=== PATIENT | female | born 1980 | race Caucasian/White ===

== ENCOUNTER 2018-09-10 14:11 | Emergency (ER) | payer OTHER ==
--- NOTE | 2018-09-10 14:21 | PDOC ---
Rapid Medical Evaluation Chief Complaint: Pain Time Seen by Provider: 09/10/18 14:17 Medical Evaluation: Allergies Allergy/AdvReac Type Severity Reaction Status Date / Time No Known Allergies Allergy Verified 09/10/18 14:18 09/10/18 14:18 I have performed a brief in-person evaluation of this patient. The patient presents with a chief complaint of: left abd pain, Nausea/ fevers Pertinent physical exam findings: + CVAt worse on the left I have ordered the following: UA/ Cx/ UcG The patient will proceed to the ED for further evaluation. Discharge Disposition - Diagnosis Abdominal pain Qualifiers: Abdominal location: lower abdomen, unspecified Qualified Code(s): R10.30 - Lower abdominal pain, unspecified - Referrals - Patient Instructions - Post Discharge Activity
[2018-09-10 14:22] VITALS: BP 114/69; PULSE 92; TEMP 100.1; BMI 30.2
[2018-09-10 15:23] LABS: EPI CELLS 0.6 /HPF (0-5/HPF); PH,URINE 6.5 (5.0-8.0); URINE APPEARANCE CLEAR; URINE BACTERIA 5356.2 /hpf (NEGATIVE); URINE BILIRUBIN NEGATIVE (NEGATIVE); URINE CASTS 8 /lpf (0-8); URINE COLOR YELLOW; URINE GLUCOSE (UA) NEGATIVE (NEGATIVE); URINE KETONE TRACE (NEGATIVE); URINE LEUK ESTERASE 2+ (NEGATIVE); URINE NITRITE POSITIVE (NEGATIVE); URINE PROTEIN NEGATIVE (NEGATIVE); URINE RBC 6 /hpf (0-4); URINE UROBILINOGEN 0.2 mg/dL (0.2-1.0); URINE WBC 34 /hpf (0-5)
[2018-09-10 15:29] LABS: HCG,QUALITATIVE URINE Negative
--- NOTE | 2018-09-10 15:57 | PDOC ---
History of Present Illness - General Chief Complaint: Pain Stated Complaint: PAIN Time Seen by Provider: 09/10/18 14:17 History Source: Patient Exam Limitations: Language Barrier - History of Present Illness Initial Comments: 09/10/18 15:48 38 yo F with no significant pmhx presents with fever and abdominal pain. She describes constant 8/10 left sided abdominal pain that has been getting worse over time. She endorses fevers at home. Denies dysuria or hematuria. Denies CP, JUDGE, SOB, nausea or vomiting. Timing/Duration: getting worse Severity: moderate Past History - Past Medical History Allergies/Adverse Reactions: Allergies Allergy/AdvReac Type Severity Reaction Status Date / Time No Known Allergies Allergy Verified 09/10/18 14:18 Home Medications: Ambulatory Orders Doxycycline Monohydrate [Monodox] 100 mg PO Q12H #28 capsule 11/26/15 NK [No Known Home Medication] 11/26/15 Cardiac Disorders: Yes (PALPITATIONS) COPD: No - Immunization History Immunization Up to Date: Yes - Suicide/Smoking/Psychosocial Hx Smoking History: Never smoked Hx Alcohol Use: No Drug/Substance Use Hx: No Substance Use Type: None Review of Systems - Review of Systems Constitutional: Yes: Chills, Diaphoresis, Fever, Loss of Appetite HEENTM: No: Recent change in vision Respiratory: No: Cough, Orthopnea, Shortness of Breath Cardiac (ROS): No: Chest Pain, Edema, Irregular Heart Rate ABD/GI: No: Nausea, Vomiting : Yes: Flank Pain, Pain. No: Hematuria Musculoskeletal: Yes: Back Pain *Physical Exam - Vital Signs Last Vital Signs Temp Pulse Resp BP Pulse Ox 100.1 F H 92 H 16 114/69 98 09/10/18 14:18 09/10/18 14:18 09/10/18 14:18 09/10/18 14:18 09/10/18 14:18 ED Treatment Course - ADDITIONAL ORDERS Additional order review: Laboratory Results 09/10/18 15:00 Urine Color Yellow Urine Appearance Clear Urine pH 6.5 Ur Specific [place] 1.015 Urine Protein Negative Urine Glucose (UA) Negative Urine Ketones Trace H Urine Blood Trace Urine Nitrite Positive H Urine Bilirubin Negative Urine Urobilinogen 0.2 Ur Leukocyte Esterase 2+ H Urine WBC (Auto) 34 Urine RBC (Auto) 6 Urine Casts (Auto) 8 U Epithel Cells (Auto) 0.6 Urine Bacteria (Auto) 5356.2 Urine HCG, Qual Negative Medical Decision Making - Medical Decision Making 09/10/18 15:57 UA shows UTI and given fevers and flank pain, diagnosed with Pyelonephritis. *DC/Admit/Observation/Transfer Diagnosis at time of Disposition: Pyelonephritis Abdominal pain Qualifiers: Abdominal location: lower abdomen, unspecified Qualified Code(s): R10.30 - Lower abdominal pain, unspecified - Discharge Dispostion Disposition: HOME Condition at time of disposition: Stable Decision to Admit order: No - Referrals Referrals: Michelle Borges NP [Primary Care Provider] - - Patient Instructions Printed Discharge Instructions: DI for Kidney Infection - Post Discharge Activity
--- NOTE | 2018-09-10 15:58 | PDOC ---
Documentation entered by Gabi Frye SCRIBE, acting as scribe for Federica Stacy MD. Federica Stacy MD: This documentation has been prepared by the Uday singh Nirvannie, SCRIBE, under my direction and personally reviewed by me in its entirety. I confirm that the documentation accurately reflects all work, treatment, procedures, and medical decision making performed by me. Attending Attestation - Resident Resident Name: Rambo Hull - ED Attending Attestation I have performed the following: I have examined & evaluated the patient, The case was reviewed & discussed with the resident, I agree w/resident's findings & plan, Exceptions are as noted - HPI HPI: 09/10/18 16:00 The patient is a 38 year old female, with no significant past medical history, who presents to the emergency department with, worsening, 8/10, left sided abdominal pain with associated fever. Patient was recently treated on Macrobid for a UTI 06/2018. She denies recent headache or dizziness. She denies recent nausea, vomit, diarrhea or constipation. She denies recent chest pain or shortness of breath. Allergies: NKDA Primary Care Physician: Dr. Borges - Physicial Exam PE: 09/10/18 15:39 GENERAL: Awake, alert, and fully oriented, in no acute distress HEAD: No signs of trauma EYES: PERRLA, EOMI, sclera anicteric, conjunctiva clear ENT: Auricles normal inspection, hearing grossly normal, nares patent, oropharynx clear without exudates. Moist mucosa NECK: Normal ROM, supple, no lymphadenopathy, JVD, or masses LUNGS: Breath sounds equal, clear to auscultation bilaterally. No wheezes, and no crackles HEART: Regular rate and rhythm, normal S1 and S2, no murmurs, rubs or gallops ABDOMEN: Soft, +suprapubic tenderness, normoactive bowel sounds. No guarding, no rebound. No masses. +L CVAT EXTREMITIES: Normal range of motion, no edema. No clubbing or cyanosis. No cords, erythema, or tenderness NEUROLOGICAL: Cranial nerves II through XII grossly intact. Normal speech, normal gait. Motor and sensation intact SKIN: Warm, Dry, normal turgor, no rashes or lesions noted - Medical Decision Making Pt with pyelo based on clinical presentation. Verified her prior rx with pharmacy- she was given macrobid. Infection has returned. Contacted her pharmacy , insurance will cover levaquin. She was given rx for levaquin 750 mg daily for 5 days. Stable for DC home.
[2018-09-10] MEDS ORDERED: IBUPROFEN 600 MG TABLET (FP) PO ONE ×2 (15:59→16:42)
== END 2018-09-10 16:30 | disposition home or self-care (01) ==
LOC: JER 14:11
DX: N12 Tubulo-interstitial nephritis, not specified as acute or chronic (principal)
CPT/HCPCS: 81003; 84703; 87086; 87186; 99281-25